=== PATIENT | male | born 1985 | race American Indian/Alaskan Native ===

== ENCOUNTER 2017-02-15 03:14 | Emergency (ER) | payer SELFPAY ==
[~2017-02-15] VITALS: Ht 170.2 cm; Wt 127.3 kg
[2017-02-15 03:18] VITALS: TEMP 98.8
[2017-02-15 04:33] VITALS: BP 138/84; PULSE 78
== END 2017-02-15 04:34 | disposition home or self-care (01) ==
LOC: COL.ER 03:14
DX: S60.221A Contusion of right hand, initial encounter (principal); S60.511A Abrasion of right hand, initial encounter; W01.198A Fall on same level from slipping, tripping and stumbling with subsequent striking against other object, initial encounter; Y92.414 Local residential or business street as the place of occurrence of the external cause; Z23 Encounter for immunization